=== PATIENT | male | born 1995 | race Asian ===

== ENCOUNTER 2025-01-13 00:32 | Inpatient (IN) | payer OTHER, SELFPAY ==
[2025-01-13] MEDS ORDERED: Ondansetron PF 4 MG/2 ML Vial IVP PRN (02:17)
[2025-01-13] MEDS ORDERED: Senokot S 8.6-50 MG TAB PO PRN (02:25)
[2025-01-13 02:30] VITALS: BMI 40.4
[2025-01-13] MEDS: Ketorolac Tromethamine 30 MG (1 mL) VIAL IVP SCH (03:08)
[2025-01-13] MEDS: Colchicine 0.6 MG TAB PO SCH ×2 (03:08→17:18)
[2025-01-13 04:46] LABS: #Basophils 0.03 10x3/uL (0.0-0.2); #Eosinophils 0.05 10x3/uL (0.0-0.7); #Monocytes 0.95 10x3/uL (0.11-0.59); #Neutrophils 7.29 10x3/uL (1.40-6.50); %Basophils 0.3 % (0.0-1.0); %Eosinophils 0.5 % (0.0-10.0); %Lymphocytes 16.5 % (21.0-51.0); %Monocytes 9.5 % (0.0-10.0); %Neutrophils 72.9 % (42.0-75.0); Hematocrit 31.7 % (42.0-52.0); Hemoglobin 10.3 g/dL (14.0-18.0); Mean Corpuscular Hemoglobin 27.6 pg (27.0-31.0); Mean Corpuscular Volume 85.0 fL (78.0-98.0); Platelet Count 226 10x3/uL (130-400); Red Blood Cell (RBC) Count 3.73 mill/uL (4.70-6.10); White Blood Cell (WBC) Count 10.00 10x3/uL (4.8-10.8)
[2025-01-13 05:01] LABS: ALT (SGPT) 92 U/L (Less than 45); AST (SGOT) 41 U/L (11-34); Albumin 3.3 g/dL (3.1-4.5); Alkaline Phosphatase 135 U/L (40-110); Anion Gap 17 mmol/L (10-20); BUN (Urea Nitrogen) 7 mg/dL (8.9-20.6); Bilirubin, Total 1.4 mg/dL (0.3-1.2); Calc. Creatinine Clearance 207 mL/min (70-130); Calcium 8.9 mg/dL (7.8-10.44); Carbon Dioxide 24 mmol/L (22-29); Chloride 101 mmol/L (98-107); Globulin 4.0 g/dL (2.4-3.5); Glucose 133 mg/dL (70-105); Potassium 3.8 mmol/L (3.5-5.1); Sodium 138 mmol/L (136-145)
[2025-01-13] MEDS: Pantoprazole 40 MG DR.TAB PO SCH (08:25)
[2025-01-13] MEDS: Ibuprofen 200 MG TAB PO SCH (08:26)
[2025-01-13] MEDS: Azithromycin 500 MG in Sodium Chloride 0.9% 250 ML 250 ML IVPB SCH (10:59)
[2025-01-13] MEDS: Ibuprofen 800 MG TAB PO SCH (14:00)
[2025-01-13] MEDS: Acetaminophen 325 MG TAB PO PRN (22:19)
[2025-01-14 04:40] LABS: #Basophils 0.03 10x3/uL (0.0-0.2); #Eosinophils 0.46 10x3/uL (0.0-0.7); #Monocytes 0.72 10x3/uL (0.11-0.59); #Neutrophils 4.46 10x3/uL (1.40-6.50); %Basophils 0.4 % (0.0-1.0); %Eosinophils 6.6 % (0.0-10.0); %Lymphocytes 18.4 % (21.0-51.0); %Monocytes 10.3 % (0.0-10.0); %Neutrophils 64.0 % (42.0-75.0); Hematocrit 31.9 % (42.0-52.0); Hemoglobin 9.9 g/dL (14.0-18.0); Mean Corpuscular Hemoglobin 27.0 pg (27.0-31.0); Mean Corpuscular Volume 86.9 fL (78.0-98.0); Platelet Count 147 10x3/uL (130-400); Red Blood Cell (RBC) Count 3.67 mill/uL (4.70-6.10); White Blood Cell (WBC) Count 6.97 10x3/uL (4.8-10.8)
[2025-01-14 05:02] LABS: ALT (SGPT) 70 U/L (Less than 45); AST (SGOT) 44 U/L (11-34); Albumin 3.0 g/dL (3.1-4.5); Alkaline Phosphatase 133 U/L (40-110); Anion Gap 13 mmol/L (10-20); BUN (Urea Nitrogen) 10 mg/dL (8.9-20.6); Bilirubin, Total 0.6 mg/dL (0.3-1.2); Calc. Creatinine Clearance 232 mL/min (70-130); Calcium 8.6 mg/dL (7.8-10.44); Carbon Dioxide 23 mmol/L (22-29); Chloride 105 mmol/L (98-107); Globulin 3.8 g/dL (2.4-3.5); Glucose 97 mg/dL (70-105); Potassium 3.8 mmol/L (3.5-5.1); Sodium 137 mmol/L (136-145)
[2025-01-14] MEDS: Senokot S 8.6-50 MG TAB PO SCH (08:15)
[2025-01-14] MEDS: Colchicine 0.6 MG TAB PO SCH (08:15)
[2025-01-15] MEDS: Acetaminophen 500 MG TAB PO SCH (01:07)
[2025-01-15 04:37] LABS: #Basophils 0.03 10x3/uL (0.0-0.2); #Eosinophils 0.60 10x3/uL (0.0-0.7); #Monocytes 1.05 10x3/uL (0.11-0.59); #Neutrophils 6.99 10x3/uL (1.40-6.50); %Basophils 0.3 % (0.0-1.0); %Eosinophils 6.1 % (0.0-10.0); %Lymphocytes 12.1 % (21.0-51.0); %Monocytes 10.6 % (0.0-10.0); %Neutrophils 70.7 % (42.0-75.0); Hematocrit 32.5 % (42.0-52.0); Hemoglobin 10.1 g/dL (14.0-18.0); Mean Corpuscular Hemoglobin 27.2 pg (27.0-31.0); Mean Corpuscular Volume 87.4 fL (78.0-98.0); Platelet Count 264 10x3/uL (130-400); Red Blood Cell (RBC) Count 3.72 mill/uL (4.70-6.10); White Blood Cell (WBC) Count 9.89 10x3/uL (4.8-10.8)
[2025-01-15 05:09] LABS: ALT (SGPT) 62 U/L (Less than 45); AST (SGOT) 37 U/L (11-34); Albumin 3.1 g/dL (3.1-4.5); Alkaline Phosphatase 149 U/L (40-110); Anion Gap 16 mmol/L (10-20); BUN (Urea Nitrogen) 8 mg/dL (8.9-20.6); Bilirubin, Total 1.1 mg/dL (0.3-1.2); Calc. Creatinine Clearance 246 mL/min (70-130); Calcium 8.7 mg/dL (7.8-10.44); Carbon Dioxide 19 mmol/L (22-29); Chloride 106 mmol/L (98-107); Globulin 3.9 g/dL (2.4-3.5); Glucose 106 mg/dL (70-105); Potassium 3.8 mmol/L (3.5-5.1); Sodium 137 mmol/L (136-145)
[2025-01-15] MEDS ORDERED: Iopamidol 370 76% 100 ML VIAL ONE (11:14)
[2025-01-15] MEDS: Calcium Carbonate 500 MG ChewTAB PO PRN (14:48)
[2025-01-16 04:20] LABS: #Basophils 0.03 10x3/uL (0.0-0.2); #Eosinophils 0.87 10x3/uL (0.0-0.7); #Monocytes 0.99 10x3/uL (0.11-0.59); #Neutrophils 6.62 10x3/uL (1.40-6.50); %Basophils 0.3 % (0.0-1.0); %Eosinophils 8.8 % (0.0-10.0); %Lymphocytes 13.1 % (21.0-51.0); %Monocytes 10.1 % (0.0-10.0); %Neutrophils 67.3 % (42.0-75.0); Hematocrit 30.6 % (42.0-52.0); Hemoglobin 9.7 g/dL (14.0-18.0); Mean Corpuscular Hemoglobin 27.3 pg (27.0-31.0); Mean Corpuscular Volume 86.2 fL (78.0-98.0); Platelet Count 286 10x3/uL (130-400); Red Blood Cell (RBC) Count 3.55 mill/uL (4.70-6.10); White Blood Cell (WBC) Count 9.84 10x3/uL (4.8-10.8)
[2025-01-16 04:47] LABS: ALT (SGPT) 59 U/L (Less than 45); AST (SGOT) 34 U/L (11-34); Albumin 2.9 g/dL (3.1-4.5); Alkaline Phosphatase 148 U/L (40-110); Anion Gap 14 mmol/L (10-20); BUN (Urea Nitrogen) 11 mg/dL (8.9-20.6); Bilirubin, Total 1.0 mg/dL (0.3-1.2); Calc. Creatinine Clearance 246 mL/min (70-130); Calcium 9.0 mg/dL (7.8-10.44); Carbon Dioxide 25 mmol/L (22-29); Chloride 103 mmol/L (98-107); Globulin 4.1 g/dL (2.4-3.5); Glucose 113 mg/dL (70-105); Potassium 3.7 mmol/L (3.5-5.1); Sodium 138 mmol/L (136-145)
[2025-01-16 15:19] VITALS: BP 131/83; TEMP 98.2
[2025-01-16 16:11] LABS: Cocaine Metabolite Screen Negative (Negative); THC/Cannabinoid Screen Negative (Negative); Tricyclic Screen Negative (Negative)
[2025-01-19 11:10] LABS: ANA Symphony (Qualitative) Negative (Negative); ANA Symphony (Quantitative) 0.5 Ratio (< 0.7 Negative); dsDNA IgG Antibody 1.0 IU/mL (<10 Negative)
== END 2025-01-16 17:25 | disposition home or self-care (01) | DRG 872 ==
LOC: 2NO 01:40
PROVIDERS: ADMIT Student in an Organized Health Care Education/Training Program; ATTEND Student in an Organized Health Care Education/Training Program
DX: A41.9 Sepsis, unspecified organism (principal); I31.9 Disease of pericardium, unspecified; I31.39 Other pericardial effusion (noninflammatory); K21.9 Gastro-esophageal reflux disease without esophagitis; K59.00 Constipation, unspecified; D64.9 Anemia, unspecified; I10 Essential (primary) hypertension; Z91.0120 Allergy to eggs, unspecified; Z88.8 Allergy status to other drugs, medicaments and biological substances; Z91.018 Allergy to other foods; Z79.899 Other long term (current) drug therapy
CPT/HCPCS: 36415; 71260; 80053; 80306; 80307; 83605; 84145; 84443; 84484; 85025; 86038; 86141; 86225; 86480; 87040; 87086; 87633; 93005; 93010; 93306; J0456; J0692; J1885; J7030; J7050; Q9967